=== PATIENT | male | born 1965 | race Caucasian/White ===

== ENCOUNTER 2023-11-15 15:10 | Outpatient (REF) | payer MEDICARE, SELFPAY ==
--- NOTE | 2023-11-15 | EMG_ITS ---
Chief complaint: ?Left hand numbness Reason for referral: Evaluate for Carpal Tunnel Syndrome versus ulnar neuropathy versus radiculopathy Referred by: ?Danielle Dsouza Procedure done: ?Left upper extremity NCS/EMG Precautions and/or limitations: None Hearing impaired, seen with spanish interpreter. The limb temperature was monitored continuously and remained between 32-36 degrees C during the performance of the NCS. Nerve Conduction Studies Anti Sensory Summary Table ?Stim Site NR Onset (ms) Norm Onset (ms) Peak (ms) Norm Peak (ms) O-P Amp (?V) Norm O-P Amp Site1 Site2 Delta-0 (ms) Dist (cm) Jaime (m/s) Norm Jaime (m/s) Left Med Ante Brach Cutan Anti Sensory (Med Forearm) Elbow ? 0.9 1.3 4.9 Elbow Med Forearm 0.9 0.0 Left Median Anti Sensory (2nd Digit) Wrist ? 3.4 4.2 <3.6 14.6 >10 Wrist 2nd Digit 3.4 14.0 41 Left Radial Anti Sensory (Thumb) Forearm ? 2.0 2.5 <3.1 11.7 Forearm Thumb 2.0 0.0 Left Ulnar Anti Sensory (5th Digit) Wrist ? 2.2 3.5 <3.7 16.5 >15.0 Wrist 5th Digit 2.2 14.0 64 Motor Summary Table ?Stim Site NR Onset (ms) Norm Onset (ms) O-P Amp (mV) Norm O-P Amp iAmp (mV) Amp (1st) (%) Site1 Site2 Delta-0 (ms) Dist (cm) Jaime (m/s) Norm Jaime (m/s) Left Median Motor (Abd Poll Brev) Wrist ? 4.4 <3.9 8.1 >4.5 9.8 100.0 Elbow Wrist 4.0 21.0 53 >45 Elbow ? 8.4 7.8 9.3 96.3 Left Ulnar Motor (Abd Dig Minimi) Wrist ? 3.0 <3.0 6.8 >5 8.4 100.0 B Elbow Wrist 3.6 22.0 61 >45 B Elbow ? 6.6 6.5 8.2 95.6 A Elbow B Elbow 1.6 10.0 63 >45 A Elbow ? 8.2 6.6 8.4 97.1 EMG ?Side Muscle Nerve Root Ins Act Fibs Psw Amp Dur Poly Recrt Int Pat Comment Left 1stDorInt Ulnar C8-T1 Nml Nml Nml Nml Nml 0 Nml Complete Left FlexCarRad Median C6-7 Nml Nml Nml Nml Nml 0 Nml Complete Left Biceps Musculocut C5-6 Nml Nml Nml Nml Nml 0 Nml Complete Left Triceps Radial C6-7-8 Nml Nml Nml Nml Nml 0 Nml Complete Left Deltoid Axillary C5-6 Nml Nml Nml Nml Nml 0 Nml Complete FINDINGS: Left median motor nerve showed prolonged distal latency, normal amplitude and normal conduction velocity. Left median sensory nerve showed prolonged peak latency. All other nerves tested were within normal. Concentric needle EMG was performed in selected muscles of the left upper extremity. Study did not reveal signs of electric abnormalities as shown in the table below. ? IMPRESSION: 1. This is an abnormal study. 2. There is electrodiagnostic evidence for left moderate-severe median neuropathy at the wrist, consistent with carpal tunnel syndrome. 3. There is no electrodiagnostic evidence for ulnar neuropathy, brachial plexopathy, or cervical radiculopathy. Thank you for your kind referral. Estelita Erickson MD, SHAI Board Certified, [place] [employer] and [employer] (ABPMR) Board Certified, [place] Board [employer] Electrodiagnostic [employer] (ABEM) [place] [id number] [facility]
== END 2023-11-15 15:11 | disposition home or self-care (01) ==
LOC: HO.NEURO 15:10
PROVIDERS: Visit Provider Nurse Practitioner Family
DX: G56.02 Carpal tunnel syndrome, left upper limb (principal)
CPT/HCPCS: 95886; 95909

== ENCOUNTER → 2023-11-15 15:28 | Outpatient (BNV) | payer MEDICARE, SELFPAY | PROVIDERS: Visit Provider Physical Medicine & Rehabilitation | DX: G56.02 Carpal tunnel syndrome, left upper limb (principal); G56.12 Other lesions of median nerve, left upper limb | CPT/HCPCS: 95886; 95909 ==